=== PATIENT | male | born 1995 | race African-American/Black ===

== ENCOUNTER 2018-09-04 17:07 | Emergency (ER) | payer SELFPAY ==
[~2018-09-04] VITALS: Ht 177.8 cm; Wt 81.6 kg
[2018-09-04 17:07] VITALS: BP 124/70
[~2018-09-04 17:07] MED LIST: NKM
--- NOTE | 2018-09-04 17:14 | Emergency Room Report ---
History of Present Illness General Chief Complaint: Syncope Source: Patient Present Illness HPI Patient is a 23-year-old male presented after reported syncopal episode. Patient states that he had been drinking earlier in the day. He denies any current locations of pain. He reportedly had similar symptoms in the past after drinking heavily. He denies any headache. He states he takes Zoloft for depression but denies any other prior medical history.He denies any episodes of bleeding or any premonitory symptoms. Allergies: Coded Allergies: No Known Allergies (Unverified , 09/04/18) Patient History Past Medical History: see triage record Reviewed Nursing Documentation: PMH: Agreed; PSxH: Agreed Nursing Documentation-PMH Past Medical History: No History, Except For Review of Systems All Other Systems: negative except mentioned in HPI Physical Exam Vital Signs Date Time Temp Pulse Resp B/P (MAP) Pulse Ox O2 Delivery O2 Flow Rate FiO2 09/04/18 17:02 98.2 72 16 124/70 100 Room Air Sp02 EP Interpretation: reviewed, normal General Appearance: normal inspection, well appearing, no apparent distress, alert, GCS 15 Head: atraumatic ENT: normal ENT inspection, hearing grossly normal, normal voice Neck: normal inspection, full range of motion, supple, no bony tend Respiratory: normal inspection, lungs clear, normal breath sounds, no respiratory distress, no retraction, no wheezing Cardiovascular #1: regular rate, rhythm, no edema Gastrointestinal: normal inspection, normal bowel sounds, non tender, soft, no guarding, no hernia Genitourinary: no CVA tenderness Musculoskeletal: normal inspection, back normal, normal range of motion Neurologic: normal inspection, alert, oriented x3, responsive, financial cost analyst III-XII nml as tested, speech normal Psychiatric: normal inspection, judgement/insight normal, mood/affect normal Skin: normal inspection, normal color, no rash Medical Decision Making Diagnostic Impression: Primary Impression: Syncope ER Course Patient presented for syncope. Differential diagnosis included but was not limited to arrhythmia, orthostatic hypotension, hypovolemia, vasovagal, anemia among others.EKG interpreted by me showed normal sinus rhythm with a rate of [address] or T wave changes. Patient does not show any acute distress. Patient does not appear to have any evidence of significant injury at this time. Patient was offered further workup but patient stated he wanted to leave. At the time of discharge patient was awake alert and ambulatory without assistance. Patient denied any recent leg pain or swelling and does not appear to have any hypoxemia or tachycardia Last Vital Signs Date Time Temp Pulse Resp B/P (MAP) Pulse Ox O2 Delivery O2 Flow Rate FiO2 09/04/18 17:02 98.2 72 16 124/70 100 Room Air Status: improved Disposition: HOME, SELF-CARE Condition: Stable Justin Toledo MD Sep 04, 2018 17:14
--- NOTE | 2018-09-04 17:15 | NUR ---
ED Nurse Note: Patient nelson RA 30 from a restaurant. Per EMS pt was found sleeping on the floor in the restroom. Per EMS BS 78mg/dL, 18G IV established by EMT in the left hand. Pt is A&O x4, V/S stable with no s/s of acute distress noted at this time. Pt denies pain or trauma and reports having at least 3 alcoholic beverages prior to arrival. ERMD at bedside evaluating the patient.
[2018-09-04 17:35] VITALS: BP 129/77
--- NOTE | 2018-09-04 17:36 | NUR ---
ED Nurse Note: Pt seen, medically cleared for discharge by ERMD. Discharge instructions given with repeat verbalization by pt. Pt a&ox4, VSS, no signs of distress, denies pain. ID band removed; IV removed, site clean and bandaged. All belongings taken wtih pt, ambulated with steady gait via own transportation.
--- NOTE | 2018-09-07 14:11 | Cardiology Report ---
APPROVED REPORT EKG Measurement Heart [id number] Normal sinus rhythm Normal ECG
== END 2018-09-04 17:38 | disposition home or self-care (01) ==
LOC: EDBD 17:07 → EMR 17:25
DX: R05 Cough (principal)
CPT/HCPCS: 93005; 99283